=== PATIENT | male | born 1975 | race Caucasian/White ===

== ENCOUNTER 2016-10-18 13:39 | Emergency (ER) | payer BC ==
[2016-10-18 13:49] VITALS: BP 113/75
--- NOTE | 2016-10-18 14:04 | UC ---
Dental HPI - HPI Summary HPI Summary: increasing right cheek swelling and pain, with tender nodes under the jaw, with a history of dental decay and abscess. He has taken 4 doses of ? amoxicillin which he previously used, with worsening pain. He does not regularly see a dentist. - History of Current Complaint Chief Complaint: UCDentalProblem Stated Complaint: RIGHT CHEEK,JAW,NECK PAIN Time Seen by Provider: 10/18/16 13:51 Hx Obtained From: Patient Onset/Duration: Gradual Onset, Lasting Days - 3 Severity: Moderate Aggravating: Cold, Chewing Alleviating: Nothing - Allergies/Home Medications Allergies/Adverse Reactions: Allergies Allergy/AdvReac Type Severity Reaction Status Date / Time No Known Allergies Allergy Verified 10/18/16 13:49 Home Medications: Home Medications Amoxicillin CAP* [Amoxicillin 500 MG CAP*] 1,000 mg PO ONCE 10/18/16 [History Confirmed 10/18/16] PMH/Surg Hx/FS Hx/Imm Hx Previously Healthy: Yes GI/ History: Kidney Stones Other History Of: Negative For: HIV, Hepatitis B, Hepatitis C, Anticoagulant Therapy - Surgical History Surgical History: Yes Surgery Procedure, Year, and Place: gall bladder 2012 - Family History Known Family History: Positive: Other - father committed suicide when he was 3 years old. Negative: Cardiac Disease, Hypertension - Social History Occupation: Employed Full-time Lives: With Family - single father, 4 children Alcohol Use: Rare Substance Use Type: None Smoking Status (MU): Heavy Every Day Tobacco Smoker Type: Cigarettes Amount Used/How Often: 1 ppd Length of Time of Smoking/Using Tobacco: 20 yrs Have You Smoked in the Last Year: Yes Review of Systems Constitutional: Negative Skin: Negative Eyes: Negative ENT: Dental Pain, Other - right jaw pain Respiratory: Negative Cardiovascular: Negative Gastrointestinal: Negative Genitourinary: Negative Motor: Negative Neurovascular: Negative Musculoskeletal: Negative Neurological: Negative Psychological: Negative All Other Systems Reviewed And Are Negative: Yes Physical Exam Triage Information Reviewed: Yes Appearance: Well-Appearing, Pain Distress - mild Vital Signs: Initial Vital Signs Temp 98 F 10/18/16 13:42 Pulse 80 10/18/16 13:42 Resp 16 10/18/16 13:42 BP 113/75 10/18/16 13:42 Pulse Ox 98 10/18/16 13:42 Eye Exam: Normal Eyes: Positive: Conjunctiva Clear, Other: - Normal painfree eom ENT: Positive: Pharynx normal, TMs normal, Other: - mild diffuse swelling in the right cheek, without palpable abscess. Dental: Positive: Gross Decay/Caries @ - #3 (number 1 and 2 absent), Other: - submandibular nodes enlarged and tender Neck: Positive: Supple, Nontender, Enlarged Nodes @ - submandibular and top of anterior cervical chain on the right. Respiratory: Positive: Lungs clear, Normal breath sounds Cardiovascular: Positive: RRR, No Murmur Neurological Exam: Normal Neurological: Positive: Alert Skin Exam: Normal Dental Complaint Course/Dx - Course Course Of Treatment: penicillin for dental abscess - Differential Dx/Diagnosis Differential Diagnosis/Dx: Dental Abscess, Dental Caries Provider Diagnoses: dental abscess Discharge - Discharge Plan Condition: Stable Disposition: HOME Prescriptions: Penicillin VK TAB 500 MG(NF) [Penicillin VK 500 mg Tab(NF)] 500 mg PO QID #30 tab Patient Education Materials: Dental Abscess (ED) Additional Instructions: Take full course of antibiotics. You can use salt water rinses to relieve discomfort. You can use ibuprofen 800mg up to 3 times per day for pain control. It is essential that you seek treatment by a dentist, or else the likelihood of recurrent infection is high. Images Dental: 1 - deep dental decay with swelling along gum line
== END 2016-10-18 14:26 | disposition home or self-care (01) ==
LOC: UCCORT 13:39
DX: K04.7 Periapical abscess without sinus (principal); Z87.442 Personal history of urinary calculi; Z90.49 Acquired absence of other specified parts of digestive tract; F17.210 Nicotine dependence, cigarettes, uncomplicated
CPT/HCPCS: 99212; G0463

== ENCOUNTER 2017-10-21 07:11 | Emergency (ER) | payer BC ==
[2017-10-21 07:38] VITALS: BP 111/74
--- NOTE | 2017-10-21 07:58 | UC ---
Dental HPI - HPI Summary HPI Summary: 42 yo male presents with left lower tooth pain for the last 2-3 days. He tells me that he knows he has bad teeth and has had an abscess here in the past - most recently about 4 months ago. He is in the process of finding a dentist. Still able to eat and drink. Not taking anything for pain. Denies fever, chills. - History of Current Complaint Chief Complaint: UCDentalProblem Stated Complaint: DENTAL Time Seen by Provider: 10/21/17 07:57 Hx Obtained From: Patient Onset/Duration: Gradual Onset Severity: Severe Pain Intensity: 8 Pain Scale Used: 0-10 Numeric - Allergies/Home Medications Allergies/Adverse Reactions: Allergies Allergy/AdvReac Type Severity Reaction Status Date / Time No Known Allergies Allergy Verified 10/21/17 07:35 PMH/Surg Hx/FS Hx/Imm Hx - Additional Past Medical History Additional PMH: None Previously Healthy: Yes Other History Of: Negative For: HIV, Hepatitis B, Hepatitis C, Anticoagulant Therapy - Surgical History Surgical History: Yes Surgery Procedure, Year, and Place: gall bladder 2013. orbital surgery - Family History Known Family History: Positive: None, Other - father committed suicide when he was 3 years old. Negative: Cardiac Disease, Hypertension - Social History Occupation: Employed Full-time Lives: With Family Alcohol Use: Rare Substance Use Type: None Smoking Status (MU): Heavy Every Day Tobacco Smoker Type: Cigarettes Amount Used/How Often: 1 ppd Length of Time of Smoking/Using Tobacco: 20 yrs Have You Smoked in the Last Year: Yes Review of Systems Constitutional: Negative Skin: Negative ENT: Dental Pain Respiratory: Negative Cardiovascular: Negative Gastrointestinal: Negative Neurological: Negative Psychological: Negative All Other Systems Reviewed And Are Negative: Yes Physical Exam - Summary Physical Exam Summary: GENERAL: NAD. WDWN. No pain distress. SKIN: No rashes, sores, lesions, or open wounds. HEENT: Nose: Nasal mucosa pink and moist. NTTP maxillary and frontal sinus. Throat: Posterior oropharynx without exudates, erythema, or tonsillar enlargement. Uvula midline. NECK: Supple. Nontender. No lymphadenopathy. CHEST: No accessory muscle use. Breathing comfortably and in no distress. CV: Pulses intact. Brisk cap refill. NEURO: Alert. PSYCH: Age appropriate behavior. Triage Information Reviewed: Yes Vital Signs: Initial Vital Signs Temp 97.8 F 10/21/17 07:28 Pulse 78 10/21/17 07:28 Resp 15 10/21/17 07:28 BP 111/74 10/21/17 07:28 Pulse Ox 99 10/21/17 07:28 Dental: Positive: Percussion Tenderness @ - Tooth #19, Gross Decay/Caries @ - throughout, Abscess @ - Tooth #19. Negative: Cellulitis @, Cervical Lymphadenopathy, Bleeding Dental Complaint Course/Dx - Course Course Of Treatment: Dental abscess Tooth #19 - Differential Dx/Diagnosis Provider Diagnoses: Dental abscess Tooth #19 Discharge - Sign-Out/Discharge Documenting (check all that apply): Discharge/Admit/Transfer - Discharge Plan Condition: Stable Disposition: HOME Prescriptions: Amoxicillin/Clavulanate TAB* [Augmentin TAB 875*] 875 mg PO BID #20 tab Patient Education Materials: Dental Abscess (ED) Referrals: No Primary Care Phys,NOPCP [Primary Care Provider] - Additional Instructions: If you develop a fever, shortness of breath, chest pain, new or worsening symptoms - please call your PCP or go to the ED. - Billing Disposition and Condition Condition: STABLE Disposition: Home
== END 2017-10-21 08:04 | disposition home or self-care (01) ==
LOC: UCCORT 07:11
DX: K04.7 Periapical abscess without sinus (principal); F17.210 Nicotine dependence, cigarettes, uncomplicated
CPT/HCPCS: 99212; G0463

== ENCOUNTER 2018-05-28 18:44 | Emergency (ER) | payer BC ==
[2018-05-28 19:19] VITALS: BP 127/74
--- NOTE | 2018-05-28 20:09 | ED ---
Throat Pain/Nasal Congestion - HPI Summary HPI Summary: 42 yo WM presents with tooth #3 missing tooth and gingival pain x 4 days, that hurts him to chew anything cold or hot, pain radiates into right maxilla, States he needs to be "put out" for tooth extraction and hates dentists. - History of Current Complaint Chief Complaint: UCDentalProblem Time Seen by Provider: 05/28/18 19:53 Hx Obtained From: Patient Onset/Duration: Gradual Onset, Lasting Days Severity: Severe - Allergies/Home Medications Allergies/Adverse Reactions: Allergies Allergy/AdvReac Type Severity Reaction Status Date / Time No Known Allergies Allergy Verified 05/28/18 19:14 PMH/Surg Hx/FS Hx/Imm Hx Endocrine/Hematology History: Denies: Hx Anticoagulant Therapy, Hx Diabetes, Hx Thyroid Disease Cardiovascular History: Denies: Hx Congestive Heart Failure, Hx Deep Vein Thrombosis, Hx Hypertension , Hx Myocardial Infarction, Hx Pacemaker/ICD Respiratory History: Denies: Hx Asthma, Hx Chronic Obstructive Pulmonary Disease (COPD), Hx Lung Cancer, Hx Pneumonia, Hx Pulmonary Embolism GI History: Reports: Hx Ulcer Denies: Hx Gall Bladder Disease, Hx Gastrointestinal Bleed, Hx Urosepsis History: Reports: Hx Kidney Stones Denies: Hx Renal Disease Neurological History: Denies: Hx Dementia, Hx Migraine, Hx Seizures, Hx Transient Ischemic Attacks (TIA) Psychiatric History: Denies: Hx Anxiety, Hx Depression, Hx Schizophrenia, Hx Bipolar Disorder - Surgical History Surgery Procedure, Year, and Place: gall bladder 2012. orbital surgery- plate and screws Infectious Disease History: No Infectious Disease History: Denies: Hx Clostridium Difficile, Hx Hepatitis, Hx Human Immunodeficiency Virus (HIV), Hx of Known/Suspected MRSA, Hx Shingles, Hx Tuberculosis, Hx Known/ Suspected VRE, Hx Known/Suspected VRSA, History Other Infectious Disease, Traveled Outside the [place] in Last 30 Days - Family History Known Family History: Positive: None, Other - father committed suicide when he was 3 years old. Negative: Cardiac Disease, Hypertension - Social History Alcohol Use: Rare Hx Substance Use: No Substance Use Type: Reports: None Hx Tobacco Use: Yes Smoking Status (MU): Heavy Every Day Tobacco Smoker Type: Cigarettes Amount Used/How Often: 1/2 ppd Length of Time of Smoking/Using Tobacco: 20 yrs Have You Smoked in the Last Year: Yes Review of Systems Constitutional: Negative Eyes: Negative Positive: Dental Pain Cardiovascular: Negative Respiratory: Negative Gastrointestinal: Negative Genitourinary: Negative Musculoskeletal: Negative Skin: Negative Neurological: Negative Psychological: Normal All Other Systems Reviewed And Are Negative: Yes Physical Exam - Summary Physical Exam Summary: Vital Signs Reviewed: Yes Appearance: Positive: Well-Appearing Skin: Positive: Warm Head/Face: Positive: Normal Head/Face Inspection Eyes: Positive: Normal, EOMI, ELENO ENT: Positive: Normal ENT inspection, SPARSE DENTITION BROKEN WITH BLACKENED DISCOLORATION TOOTH #3, PAINFUL GINGIVA, FLUCTUANT RIGHT UPPER PALATE Neck: Positive: Supple Respiratory/Lung Sounds: Positive: Clear to Auscultation Cardiovascular: Positive: Normal, RRR, S1, S2 Abdomen Positive: Nontender, Soft Musculoskeletal: Positive: Normal Neurological: Positive: CN Intact II-XII Psychiatric: Positive: Normal Triage Information Reviewed: Yes Vital Signs On Initial Exam: Initial Vitals Temp Pulse Resp BP Pulse Ox 36.8 C 86 16 127/74 98 05/28/18 19:14 05/28/18 19:14 05/28/18 19:14 05/28/18 19:14 05/28/18 19:14 Diagnostics - Vital Signs Vital Signs Temp Pulse Resp BP Pulse Ox 05/28/18 19:14 36.8 C 86 16 127/74 98 - Laboratory Lab Statement: Any lab studies that have been ordered have been reviewed, and results considered in the medical decision making process. EENT Course/Dx - Course Assessment/Plan: dental pain- likely due to abscess of tooth # 3 into right maxilla, needs tooth extracted, will cover with Augmentin - Diagnoses Provider Diagnoses: Tooth abscess Discharge - Sign-Out/Discharge Documenting (check all that apply): Patient Departure All imaging exams completed and their final reports reviewed: No Studies - Discharge Plan Condition: Stable Disposition: HOME Prescriptions: Amoxicillin/Clavulanate TAB* [Augmentin TAB 875*] 875 mg PO BID 10 Days #20 tab Patient Education Materials: Dental Abscess (ED), Toothache (ED) Additional Instructions: follow up with dentist caity - Billing Disposition and Condition Condition: STABLE Disposition: Home
== END 2018-05-28 20:09 | disposition home or self-care (01) ==
LOC: UCCORT 18:44
DX: K04.7 Periapical abscess without sinus (principal); K03.81 Cracked tooth; F17.210 Nicotine dependence, cigarettes, uncomplicated
CPT/HCPCS: 99212; G0463

== ENCOUNTER 2019-01-13 12:01 | Emergency (ER) | payer BC ==
[2019-01-13 12:54] VITALS: BP 120/72
--- NOTE | 2019-01-13 14:01 | UC ---
Lower Extremity/Ankle HPI - HPI Summary HPI Summary: right ankle pain x 2 weeks twisted his right ankle 2 weeks ago pain and swelling, was getting better until he twisted the right ankle again 2 days ago pain is much more sever, 7 out of 10 worse with walking has bee limping , has difficulty with dorsiflexion no swelling, no bruising - History of Current Complaint Chief Complaint: UCLowerExtremity Stated Complaint: RIGHT ANKLE INJURY Time Seen by Provider: 01/13/19 12:56 Hx Obtained From: Patient Onset/Duration: Sudden Onset, Lasting Days - 2, Still Present Severity Initially: Moderate Severity Currently: Moderate Pain Intensity: 2 Pain Scale Used: 0-10 Numeric Aggravating Factor(s): Standing, Ambulation Alleviating Factor(s): Rest, Elevation Able to Bear Weight: Yes - Allergies/Home Medications Allergies/Adverse Reactions: Allergies Allergy/AdvReac Type Severity Reaction Status Date / Time No Known Allergies Allergy Verified 01/13/19 12:49 Home Medications: Home Medications HYDROcodone/ACETAMIN 5-325 MG* [[place] 5-325 TAB*] 1 tab PO Q6H PRN 01/13/19 [ History Confirmed 01/13/19] Ibuprofen TAB* [Motrin TAB* 800 MG] 1 dose PO ONCE 01/13/19 [History Confirmed 01/13/19] PMH/Surg Hx/FS Hx/Imm Hx Previously Healthy: Yes Other History Of: Negative For: HIV, Hepatitis B, Hepatitis C, Anticoagulant Therapy - Surgical History Surgical History: Yes Surgery Procedure, Year, and Place: gall bladder 2013. orbital surgery- plate and screws - Family History Known Family History: Positive: None, Other - father committed suicide when he was 3 years old. Negative: Cardiac Disease, Hypertension - Social History Alcohol Use: Rare Substance Use Type: None Smoking Status (MU): Heavy Every Day Tobacco Smoker Type: Cigarettes Amount Used/How Often: 1/2 ppd Length of Time of Smoking/Using Tobacco: 20 yrs Have You Smoked in the Last Year: Yes Review of Systems All Other Systems Reviewed And Are Negative: Yes Constitutional: Positive: Negative Skin: Positive: Negative Eyes: Positive: Negative Is Patient Immunocompromised?: No Physical Exam Triage Information Reviewed: Yes Appearance: Well-Appearing, No Pain Distress, Well-Nourished Vital Signs: Initial Vital Signs Temp 99.2 F 01/13/19 12:47 Pulse 84 01/13/19 12:47 Resp 18 01/13/19 12:47 BP 120/72 01/13/19 12:47 Pulse Ox 98 01/13/19 12:47 Vital Signs Reviewed: Yes Eye Exam: Normal Eyes: Positive: Conjunctiva Clear ENT: Positive: Normal ENT inspection, Hearing grossly normal, Pharynx normal Neck: Positive: Supple, Nontender, No Lymphadenopathy Respiratory: Positive: Chest non-tender, Lungs clear, Normal breath sounds Cardiovascular: Positive: RRR, No Murmur, Pulses Normal Musculoskeletal: Positive: Other: - right ankle : no swelling, tenderness anterior ankle , limited ROM on dorsiflexion , decrease strength on dorsiflexion Diagnostics - Radiology No standard instances Radiology Interpretation Completed By: Radiologist Summary of Radiographic Findings: xray right ankle : IMPRESSION: NO ACUTE OSSEOUS INJURY. IF SYMPTOMS PERSIST, RECOMMEND REPEAT IMAGING. Lower Extremity Course/Dx - Course Course Of Treatment: limited ROM on dorsiflexion concern about tendon rupture will have the pt. follow up with ortho may need an MRI to r/o tendon rupture - Differential Dx/Diagnosis Provider Diagnosis: Right ankle pain Discharge ED - Sign-Out/Discharge Documenting (check all that apply): Patient Departure All imaging exams completed and their final reports reviewed: Yes - Discharge Plan Condition: Stable Disposition: HOME Patient Education Materials: Ankle Sprain (ED) Forms: *Work Release Referrals: Rolando Dukes MD [Medical Doctor] - As Soon As Possible No Primary Care Phys,NOPCP [Primary Care Provider] - - Billing Disposition and Condition Condition: STABLE Disposition: Home
== END 2019-01-13 13:36 | disposition home or self-care (01) ==
LOC: UCCORT 12:01
DX: M25.571 Pain in right ankle and joints of right foot (principal); F17.210 Nicotine dependence, cigarettes, uncomplicated
CPT/HCPCS: 99211; G0463